=== PATIENT | female | born 1970 | race Caucasian/White ===

== ENCOUNTER → 2024-11-17 | Outpatient (CLI) | payer BC, SELFPAY ==
--- NOTE | 2024-11-17 15:25 | XR_ITS ---
EXAMINATION: Ankle, right 3 views . Technique: Ankle AP, oblique, lateral 3 views Date and time of exam: November 17, 2024 1530 hours INDICATIONS: Patient fell October 04, 2024 with injury to the right ankle, right ankle pain. FINDINGS: Moderate osteoarthritis tibiotalar joint Lateral malleolar soft tissue swelling No acute ankle fracture or dislocation 6 mm plantar bony calcaneal spur IMPRESSION: No acute ankle fracture
--- NOTE | 2024-11-17 15:25 | XR_ITS ---
Examination: Shoulder,right, 3 views Technique: Shoulder AP internal rotation, AP external rotation, Y view shoulder, 3 views Exam date and time :November 17, 2024 1530 hours INDICATIONS: Patient fell October 04, 2024 with injury to the shoulder, shoulder pain. FINDINGS: Moderate osteopenia No shoulder fracture or dislocation No AC joint separation IMPRESSION: No shoulder fracture or dislocation
--- NOTE | 2024-11-17 15:25 | XR_ITS ---
Examination: Right knee 4 views TECHNIQUE: AP oblique lateral axial right knee 4 views Exam date and time: November 17, 2024 1530 hours INDICATIONS: Patient fell October 04, 2024 with injury to the knee, persistent knee pain. FINDINGS: Moderate to advanced osteoarthritis medial patellofemoral joints No fracture No patellar dislocation IMPRESSION: Moderate to advanced osteoarthritis medial and patellofemoral joints
== END | disposition home or self-care (01) ==
PROVIDERS: PCP Internal Medicine; Referring Provider Internal Medicine; Visit Provider Internal Medicine
DX: S89.92XA Unspecified injury of left lower leg, initial encounter (principal); S49.91XA Unspecified injury of right shoulder and upper arm, initial encounter; S99.911A Unspecified injury of right ankle, initial encounter; W19.XXXA Unspecified fall, initial encounter; M17.12 Unilateral primary osteoarthritis, left knee
CPT/HCPCS: 73030; 73564; 73610

== ENCOUNTER → 2024-12-12 | Outpatient (CLI) | payer BC, SELFPAY ==
--- NOTE | 2024-12-12 11:30 | XR_ITS ---
Examination: Abdomen sonogram, complete Date and time of exam: December 12, 2024 1136 hours INDICATIONS: Right upper abdominal pain beginning 6 months ago. Technique: Multiple real-time grayscale transabdominal sonographic images of the abdomen have been obtained. Findings: Multiple gallstones, the largest 2.7 cm Multiple 3 2 cm Common bile duct enlarged 0.8 cm no definite stones Pancreatic head 2.9 cm Proximal aorta visualized 2.3 cm Liver 19.7 cm fatty infiltration smooth contour no focal liver lesions Normal hepatopedal portal venous flow Patent IVC Right kidney 10.0 cm renal cortex 1.3 cm Left kidney 10.3 cm cortex 1.7 cm Upper pole solid mass left kidney 13 x 12 x 11 mm Spleen 11.4 cm IMPRESSION: Cholelithiasis, negative for cholecystitis Enlarged common bile duct 0.8 cm, consider MRCP follow-up to exclude common bile duct stones as clinically warranted Solid mass upper pole left kidney 13 x 12 x 11 mm, recommend MRI abdomen kidneys follow-up to exclude early left renal cell carcinoma
== END | disposition home or self-care (01) ==
LOC: CDIM 11:16
PROVIDERS: PCP Internal Medicine; Referring Provider Internal Medicine; Visit Provider Internal Medicine
DX: K80.20 Calculus of gallbladder without cholecystitis without obstruction (principal); K83.8 Other specified diseases of biliary tract; N20.0 Calculus of kidney
CPT/HCPCS: 76700

== ENCOUNTER 2025-03-20 08:51 | Outpatient (AMB) | payer BC, SELFPAY ==
[2025-03-20 09:23] VITALS: BP 162/89; PULSE 107; RESP 18; TEMP 35.7; O2SAT 94; BMI 55.6
--- NOTE | 2025-03-20 09:23 | ORTHONT_ITS ---
Vital signs 03/20/25 09:23 Height 1.6 m Height Method Stated Weight 142.513 kg Weight Measurement Method Standing Scale BMI 55.6 BP 162/89 H Blood Pressure Source Automatic Cuff Blood Pressure Location Left Upper Arm Position Sitting Respiration 18 Pulse 107 H Pulse Source Monitor Temp 96.3 F L Temp Source Temporal Artery Scan Pulse Oximetry (%) 94 L Oxygen Delivery Method Room Air Med/Allergies Allergies & Medications Allergies albuterol Allergy (Mild, Verified 03/20/25 09:26) Irritable tramadol HCl Allergy (Unknown, Verified 03/20/25 09:26) FEET ITCH Medication Reconciliation Cetirizine * (ZYRTEC *) 10 mg PO QDAY #0 tabs 05/01/14 [History Confirmed 03/20/25] FLUTICASONE/SALMETEROL (ADVAIR 500/50 DISKUS) inhalation QDAY ##0 05/01/14 [History Confirmed 03/20/25] Liothyronine Sodium PO QDAY ##0 05/01/14 [History Confirmed 03/20/25] beclomethasone dipropionate 80 mcg/actuation aerosol inhaler (Qvar) 1 puff inhalation BID #0 puffs 05/01/14 [History Confirmed 03/20/25] fesoterodine 8 mg tablet,extended release 24 hr (Toviaz) 8 mg PO QDAY ##0 05/01/14 [History Confirmed 03/20/25] hydrochlorothiazide 12.5 mg capsule (Microzide) 12.5 mg PO QAM #0 caps 05/01/14 [History Confirmed 03/20/25] levalbuterol tartrate 45 mcg/actuation aerosol inhaler (Xopenex HFA) 2 puff inhalation QDAY #0 puffs 05/01/14 [History Confirmed 03/20/25] montelukast 10 mg tablet (Singulair) 10 mg PO HS #0 tabs 05/01/14 [History Confirmed 03/20/25] Amphetamine/Dextroamphetamine * (ADDERALL *) 20 mg PO BID #0 tabs 03/23/17 [History Confirmed 03/20/25] Fluticasone/Vilanterol (Breo Ellipta 100-25 Mcg INH) 1 ea inhalation #0 ea 03/23/17 [History Confirmed 03/20/25] NUCYNTA 75 mg PO Q6HR ##0 03/23/17 [History Confirmed 03/20/25] Tiotropium [place] * (SPIRIVA *) 1 cap inhalation QDAY #0 puffs 03/23/17 [History Confirmed 03/20/25] lisinopril 10 mg tablet 10 mg PO QDAY #0 tabs 03/23/17 [History Confirmed 03/20/25] mirabegron 50 mg tablet,extended release 24 hr (Myrbetriq) 50 mg PO QDAY ##0 03/23/17 [History Confirmed 03/20/25] pregabalin 200 mg capsule (Lyrica) 200 mg PO TID #0 caps 03/23/17 [History Confirmed 03/20/25] Exam Exam Patient is in no acute distress and is cooperative with the examination today. Breathing is nonlabored. Patient has a normal mood and affect. Bilateral extremities were evaluated and demonstrates sensation intact to light touch. Palpable pedal pulses are present. No significant edema is present. Bilateral hips were examined. The patient has no pain with log roll of the hips. Internal rotation to 30 degrees and external rotation to 30 degrees is painless. Negative FADIR. Right knee was examined today. The right knee is in reasonable alignment. Range of motion from 0-120 degrees. Knee is stable to varus and valgus as well as AP translation with <5mm. Patient has a negative McMurrays. There is no pain with patellofemoral compression and no crepitus noted. The knee is nontender to palpation. Left knee was examined today. The left knee is in varus alignment. Range of motion from 0-115 degrees. Knee is stable to varus and valgus as well as AP translation with <5mm. Patient has a negative McMurrays. There is no pain with patellofemoral compression and no crepitus noted. The knee is tender to palpation medially. Left knee x-rays demonstrate complete joint space obliteration medially with [id number] arthritis. Osteophytes are present Assessment and Plan Problem List (1) Arthritis of left knee: Status: Acute Plan: 55-year-old female with left knee pain and left knee arthritis. We discussed nonoperative treatment as well as operative options. She has a lot of issues going on. She has multiple medical comorbidities and will need cardiac and medical clearance. She would also need a pain management doctor on board as she is on very strong pain medications. I discussed with her that she will likely need to lose weight as she is at extremely high risk for complications. 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 She is at extremely high risk and she will need to be optimized before proceeding with surgery. We will do a left knee injection today Recommend knee cortisone injection as patient would like to proceed with conservative treatment at this time. The risks and benefits of the procedure were reviewed with the patient and patient gave verbal consent to continue with the procedure. Procedure: performed by Dr. Osorio Using sterile technique the left knee was thoroughly prepped with alcohol, and approximately 1 cc of Kenalog 40 mg/mL and 4 cc of 1% lidocaine was injected without resistance into the medial tibial femoral joint space. The patient tolerated the procedure. Office Procedures GNS Level of Care Nursing/Assessment Patient Status: Initial/New Patient Nursing Assessment/Reassesment: Medication Reconciliation, Update PMH in EMR and Vital Signs Coordination of Care: Complex Care and Chronic Disease 1-5, Education Complex Pt/Fam, Consent,records obtained, informed consent, 1 Ins Authorization, Lab and Imaging orders, Results/Orders obtained and Staff clarify orders New Patient Charge New Patient Point Assignment: 1124 New Patient Point Charge: CELLOPHANE TESTER Level 4 (7908-7902) Surgical Proc/IM SQ injection Major Surgical Procedure: Yes (KNEE INJECTION) Medication Given Medication Given Medication Given: Yes Documented Dose Given: 4 Route: Infiitration Medication Given Medication Given Medication Given: Yes Documented Dose Given: 1 Route: Infiitration Office Meds Xylocaine 10 mg/mL (1 %) injection solution Performing Provider: Josemanuel Osorio MD Performing Location: [facility] Administered by: Josemanuel Osorio MD on 03/20/25 09:49 Dose Route Admin Location Dispensed Lot Number Expiration Date [facility] Pad Machine Operator 20 mL Infiltration KNEE 20 mL [id number] 06/05/28 57074-912-60 [facility] triamcinolone acetonide 40 mg/mL suspension for injection Performing Provider: Josemanuel Osorio MD Performing Location: [facility] Administered by: Josemanuel Osorio MD on 03/20/25 09:49 Dose Route Admin Location Dispensed Lot Number Expiration Date [facility] Pad Machine Operator 40 mg intra-articular KNEE 1 mL [id number] 10/05/26 4888-8611-56 [employer] [place] Intake Visit Data Collection New Patient or Established: New Patient (never been to [facility]) Reason for Visit:: OA L KNEE Seen by Clinical Staff ONLY (RN/MA): No PCP or OBGYN visit in last 3 months: Yes Hx Now: No Do You Feel Safe at Home: Yes Authorities Contacted: N/A Questionairres Past Medical History Past Medical History Have you ever been diagnosed with any of the following: Respiratory Problems Smoking: No Smoking Exposure: No Subjective Visit Visit for: new patient and knee Immunization / Flu Flu Vaccine in the Last 12 Months: No Flu Vaccine Exclusion Criteria: Allergy to Flu Vaccine History of Present Illness Chief complaint: Left knee pain Date of injury / onset of symptoms: 5 YEARS Sarina is a pleasant 55-year-old female with several years of left knee pain. She has tried injections in the past as well as anti-inflammatories and physical therapy. 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 She is trying to lose weight. We discussed with her that she would likely need to lose some weight before surgery. She also has COPD and asthma. Pain Pain level (0-10): 8 Pain duration: WITH MOVEMENT Pain location: inside (medial), outside (lateral), anterior and posterior Pain quality: sharp, dull and aching Pain timing: night, increases with activity and stairs Associated signs & symptoms: weakness and stiffness Ambulatory data Ambulatory device: walker Treatments Improvement with previous injections: No Improvement with PT: No Improvement with NSAIDS: no Review of Systems Review of Systems: All systems negative unless otherwise noted in HPI.
== END 2025-03-20 09:54 | disposition home or self-care (01) ==
LOC: HODSRG 08:51
PROVIDERS: PCP Orthopaedic Surgery; Referring Provider Orthopaedic Surgery; Supervising Provider Orthopaedic Surgery Adult Reconstructive Orthopaedic Surgery; Visit Provider Orthopaedic Surgery Adult Reconstructive Orthopaedic Surgery
DX: M17.12 Unilateral primary osteoarthritis, left knee (principal); M25.562 Pain in left knee; J44.89 Other specified chronic obstructive pulmonary disease
CPT/HCPCS: 20610; 99204; J3301; J3490; G0463

== ENCOUNTER 2025-06-23 13:14 | Outpatient (AMB) | payer BC, SELFPAY ==
--- NOTE | 2025-06-23 13:29 | ORTHONT_ITS ---
Vital signs 06/23/25 13:30 Height 1.6 m Height Method Stated Weight 148.892 kg Weight Measurement Method Standing Scale BMI 58.1 BP 117/68 Blood Pressure Source Automatic Cuff Blood Pressure Location Left Upper Arm Position Sitting Respiration 18 Pulse 106 H Pulse Source Monitor Temp 98.0 F Temp Source Temporal Artery Scan Pulse Oximetry (%) 95 Oxygen Delivery Method Room Air Med/Allergies Allergies & Medications Allergies albuterol Allergy (Mild, Verified 06/23/25 13:32) Irritable tramadol HCl Allergy (Unknown, Verified 06/23/25 13:32) FEET ITCH Medication Reconciliation Cetirizine * (ZYRTEC *) 10 mg PO QDAY #0 tabs 05/01/14 [History Confirmed 06/23/25] FLUTICASONE/SALMETEROL (ADVAIR 500/50 DISKUS) inhalation QDAY ##0 05/01/14 [History Confirmed 06/23/25] Liothyronine Sodium PO QDAY ##0 05/01/14 [History Confirmed 06/23/25] beclomethasone dipropionate 80 mcg/actuation aerosol inhaler (Qvar) 1 puff inhalation BID #0 puffs 05/01/14 [History Confirmed 06/23/25] fesoterodine 8 mg tablet,extended release 24 hr (Toviaz) 8 mg PO QDAY ##0 05/01/14 [History Confirmed 06/23/25] hydrochlorothiazide 12.5 mg capsule (Microzide) 12.5 mg PO QAM #0 caps 05/01/14 [History Confirmed 06/23/25] levalbuterol tartrate 45 mcg/actuation aerosol inhaler (Xopenex HFA) 2 puff inhalation QDAY #0 puffs 05/01/14 [History Confirmed 06/23/25] montelukast 10 mg tablet (Singulair) 10 mg PO HS #0 tabs 05/01/14 [History Confirmed 06/23/25] Amphetamine/Dextroamphetamine * (ADDERALL *) 20 mg PO BID #0 tabs 03/23/17 [History Confirmed 06/23/25] Fluticasone/Vilanterol (Breo Ellipta 100-25 Mcg INH) 1 ea inhalation #0 ea 03/23/17 [History Confirmed 06/23/25] NUCYNTA 75 mg PO Q6HR ##0 03/23/17 [History Confirmed 06/23/25] Tiotropium [place] * (SPIRIVA *) 1 cap inhalation QDAY #0 puffs 03/23/17 [His tory Confirmed 06/23/25] lisinopril 10 mg tablet 10 mg PO QDAY #0 tabs 03/23/17 [History Confirmed 06/23/25] mirabegron 50 mg tablet,extended release 24 hr (Myrbetriq) 50 mg PO QDAY ##0 03/23/17 [History Confirmed 06/23/25] pregabalin 200 mg capsule (Lyrica) 200 mg PO TID #0 caps 03/23/17 [History Confirmed 06/23/25] Exam Exam Patient is in no acute distress and is cooperative with the examination today. Breathing is nonlabored. Patient has a normal mood and affect. Bilateral extremities were evaluated and demonstrates sensation intact to light touch. Palpable pedal pulses are present. No significant edema is present. Bilateral hips were examined. The patient has no pain with log roll of the hips. Internal rotation to 30 degrees and external rotation to 30 degrees is painless. Negative FADIR. Right knee was examined today. The right knee is in reasonable alignment. Range of motion from 0-120 degrees. Knee is stable to varus and valgus as well as AP translation with <5mm. Patient has a negative McMurrays. There is no pain with patellofemoral compression and no crepitus noted. The knee is nontender to palpation. Left knee was examined today. The left knee is in varus alignment. Range of motion from 0-115 degrees. Knee is stable to varus and valgus as well as AP translation with <5mm. Patient has a negative McMurrays. There is no pain with patellofemoral compression and no crepitus noted. The knee is tender to palpation medially. Left knee x-rays demonstrate complete joint space obliteration medially with [id number] arthritis. Osteophytes are present Assessment and Plan Problem List (1) Arthritis of left knee: Status: Acute Plan: 55-year-old female with left knee pain and left knee arthritis. We discussed nonoperative treatment as well as operative options. She has a lot of issues going on. She has multiple medical comorbidities and will need cardiac and medical clearance. She would also need a pain management doctor on board as she is on very strong pain medications. I discussed with her that she will likely need to lose weight as she is at extremely high risk for complications. 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 She is at extremely high risk and she will need to be optimized before proceeding with surgery. Office Procedures GNS Level of Care Nursing/Assessment Patient Status: Established Patient Nursing Assessment/Reassesment: Medication Reconciliation, Update PMH in EMR and Vital Signs Coordination of Care: Complex Care and Chronic Disease 1-5, Education Complex Pt/Fam, Consent,records obtained, informed consent, Results/Orders obtained and Staff clarify orders Established Patient Charge Established Patient Point Assignment: 95 Established Patient Point Charge: Level 3 (80-115) MA Intake Visit Data Collection New Patient or Established: Established Patient (seen at [facility] within 3 years) Reason for Visit:: LEFT KNEE INJECTION Seen by Clinical Staff ONLY (RN/MA): No PCP or OBGYN visit in last 3 months: Yes Hx Now: No Do You Feel Safe at Home: Yes Authorities Contacted: N/A Questionairres Past Medical History Past Medical History Have you ever been diagnosed with any of the following: Cardiology Problems Myocardial Infarction: No Cardiac Arrhythmia: No Atrial Fibrillation: No Angina: No Heart Murmur: No Coronary Artery Disease: No Atherosclerotic Heart Disease: No Peripheral Vascular Disease: No Hypercholesterolemia: No Aneurysm: No Congestive Heart Failure: No Congenital Heart Disease: No Valvular Heart Disease: No Rheumatic Fever: No Cardiomyopathy: No Edema: No Pericarditis: No Cellulitis: No Deep Vein Thrombosis: No Hypertension: No Varicose Veins: No Respiratory Problems Smoking: No Smoking Cessation Counseling: No Smoking Exposure: No Subjective Visit Visit for: follow up visit, knee (LEFT) and injections Immunization / Flu Flu Vaccine in the Last 12 Months: No Flu Vaccine Exclusion Criteria: Allergy to Flu Vaccine History of Present Illness Chief complaint: LEFT KNEE PAIN/INJECTION Date of injury / onset of symptoms: 5 YEARS Sarina is a pleasant 55-year-old female with several years of left knee pain. She has tried injections in the past as well as anti-inflammatories and physical therapy. 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 She is trying to lose weight. We discussed with her that she would likely need to lose some weight before surgery. She also has COPD and asthma. The last injection lasted only for 2 days Personal History BMI Counceling provided: Yes Pain Pain level (0-10): 10 Pain duration: WITH MOVEMENT Pain location: inside (medial), outside (lateral), anterior and posterior Pain quality: sharp, dull and aching Pain timing: night, increases with activity and stairs Associated signs & symptoms: weakness and stiffness Ambulatory data Ambulatory device: cane Treatments Number of previous injections: 1 Improvement with previous injections: No Improvement with PT: No Improvement with NSAIDS: no Review of Systems Review of Systems: All systems negative unless otherwise noted in HPI.
[2025-06-23 13:30] VITALS: BP 117/68; PULSE 106; RESP 18; TEMP 36.7; O2SAT 95; BMI 58.1
--- NOTE | 2025-06-23 13:44 | XR_ITS ---
Examination: Bilateral knees 2 views Right lateral knee left lateral knee 2 views Bilateral axial knees single view TECHNIQUE: Bilateral AP knees standing single view, bilateral PA knees standing single view flexion Standing right lateral knee left lateral knee 2 views Bilateral axial knees single view total 5 views Date and time: June 23, 2025 1356 hours INDICATIONS: Bilateral knee pain 3 years difficulty walking FINDINGS: Significant osteopenia Severe narrowing right patellofemoral joint Moderate osteoarthritis lateral medial joint spaces No fracture Severe narrowing medial joint space left knee Advanced osteoarthritis lateral and patellofemoral joints left knee No fracture IMPRESSION: Advanced osteoarthritis, tricompartmental, left knee including severe narrowing medial joint space Severe narrowing right patellofemoral joint
== END 2025-06-23 13:47 | disposition home or self-care (01) ==
LOC: HODSRG 13:14
PROVIDERS: PCP Internal Medicine; Referring Provider Internal Medicine; Supervising Provider Orthopaedic Surgery Adult Reconstructive Orthopaedic Surgery; Visit Provider Orthopaedic Surgery Adult Reconstructive Orthopaedic Surgery
DX: M17.12 Unilateral primary osteoarthritis, left knee (principal); M25.562 Pain in left knee; M25.861 Other specified joint disorders, right knee; J44.9 Chronic obstructive pulmonary disease, unspecified
CPT/HCPCS: 73564; 99213; G0463

== ENCOUNTER → 2025-09-29 | Outpatient (CLI) | payer BC, SELFPAY ==
[2025-09-29 17:12] LABS: Anion Gap 7 (7-16); BUN/Creatinine Ratio 9 Ratio (12-20); Blood Urea Nitrogen 8 mg/dL (9-23); Calcium 9.7 mg/dL (8.3-10.6); Carbon Dioxide 29.3 mMol/L (20.0-31.0); Chloride 103 mMol/L (98-107); Creatinine (Component) 0.9 mg/dL (0.6-1.3); Glucose 104 mg/dL (74-106); Osmolality,Calculated 275 (275-295); Potassium 4.3 mMol/L (3.4-5.1); Sodium 139 mMol/L (136-145); eGFR > 60 See Note
== END | disposition home or self-care (01) ==
PROVIDERS: PCP Internal Medicine; Referring Provider Physician Assistant; Visit Provider Physician Assistant
DX: E87.1 Hypo-osmolality and hyponatremia (principal); E27.49 Other adrenocortical insufficiency; E87.5 Hyperkalemia
CPT/HCPCS: 36415; 80048